=== PATIENT | male | born 1965 | race African-American/Black ===

== ENCOUNTER 2019-03-13 05:09 | Emergency (ER) | payer MEDICARE, OTHER ==
[~2019-03-13] VITALS: Ht 170.2 cm; Wt 68.6 kg
[~2019-03-13 05:09] MED LIST: CIPR500T4 PO; IBUP-1542 PO; ONDA4TAB8 PO
[2019-03-13 05:14] VITALS: Ht 170.2 cm; Wt 68.6 kg
[2019-03-13] MEDS ORDERED: FAMOTIDINE 20 MG TAB PO STA (06:22)
[2019-03-13] MEDS ORDERED: BELLADONNA/PHENOBARBITAL TAB PO STA (06:22)
[2019-03-13] MEDS ORDERED: KETOROLAC 30 MG INJ IM STA (06:22)
[2019-03-13] MEDS ORDERED: LIDOCAINE/MYLANTA 40 ML BTL PO STA (06:22)
[2019-03-13] MEDS ORDERED: KETOROLAC 15 MG INJ IV STA (06:27)
[2019-03-13] MEDS ORDERED: SOD CHLORIDE 0.9% 500 ML IV STA (06:27)
[2019-03-13] MEDS ORDERED: ONDANSETRON 4 MG INJ IV STA (07:02)
[2019-03-13] MEDS ORDERED: ONDANSETRON 4 MG INJ ONE (07:04)
[2019-03-13 10:39] VITALS: BP 159/89; PULSE 74; RESP 18
== END 2019-03-13 10:40 | disposition home or self-care (01) ==
LOC: E/R 05:09
DX: N20.1 Calculus of ureter (principal)
CPT/HCPCS: 36415; 74176; 80053; 83690; 85025; 96374; 96375; 99285; J1885; J2405; J7040